=== PATIENT | female | born 1995 | race Caucasian/White ===

== ENCOUNTER 2024-01-03 01:52 | Emergency (ER) | payer SELFPAY ==
[2024-01-03 02:19] VITALS: BP 140/84; PULSE 88; RESP 16; TEMP 98.9; O2SAT 98
== END 2024-01-03 02:42 | disposition left against medical advice (07) ==
LOC: ER 01:53 → EDBD 01:53 → ER 02:42
DX: F29 Unspecified psychosis not due to a substance or known physiological condition (principal); Z53.21 Procedure and treatment not carried out due to patient leaving prior to being seen by health care provider
CPT/HCPCS: 99281